=== PATIENT | male | born 1970 | race Caucasian/White ===

== ENCOUNTER 2022-11-14 11:18 | Emergency (ER) | payer BC ==
[2022-11-14 12:49] LABS: CARBON DIOXIDE,CO2 24.3 mmol/L (21.0-32.0)
== END 2022-11-14 13:55 | disposition home or self-care (01) ==
LOC: MW.ED 11:18
DX: R07.89 Other chest pain (principal); R53.83 Other fatigue; Z88.5 Allergy status to narcotic agent; Z88.0 Allergy status to penicillin
CPT/HCPCS: 36415; 70450; 70450-26; 71045; 71045-26; 80053; 84484; 85025; 85379; 93005; 93010; 99283; 99285